=== PATIENT | female | born 1980 | race Two or more races ===

== ENCOUNTER 2018-04-17 07:23 | Emergency (ER) | payer OTHER ==
[~2018-04-17] VITALS: Ht 160 cm; Wt 68.0 kg
[~2018-04-17 07:23] MED LIST: NAPR-58 PO
[2018-04-17 07:24] VITALS: BP 109/63
== END 2018-04-17 07:48 | disposition left against medical advice (07) ==
LOC: EMS 07:23
DX: N93.9 Abnormal uterine and vaginal bleeding, unspecified (principal); Z53.21 Procedure and treatment not carried out due to patient leaving prior to being seen by health care provider

== ENCOUNTER 2018-11-03 09:05 | Observation (INO) | payer MEDICAID ==
[~2018-11-03 09:05] MED LIST changes: +NAPR-1025 PO; -NAPR-58 PO
[2018-11-03 11:22] VITALS: BP 107/56
== END 2018-11-03 10:30 | disposition home or self-care (01) ==
LOC: 4S 09:05
PROVIDERS: ADMIT Obstetrics & Gynecology; ATTEND Obstetrics & Gynecology
DX: O24.419 Gestational diabetes mellitus in pregnancy, unspecified control (principal); O09.523 Supervision of elderly multigravida, third trimester; Z3A.34 34 weeks gestation of pregnancy

== ENCOUNTER 2018-11-05 09:00 | Observation (INO) | payer MEDICAID ==
[~2018-11-05] VITALS: Ht 165.1 cm; Wt 77.6 kg
[2018-11-05 09:48] VITALS: BP 101/56
== END 2018-11-05 10:45 | disposition home or self-care (01) ==
LOC: 4S 09:00
PROVIDERS: ADMIT Obstetrics & Gynecology; ATTEND Obstetrics & Gynecology
DX: O24.419 Gestational diabetes mellitus in pregnancy, unspecified control (principal); O09.523 Supervision of elderly multigravida, third trimester; Z3A.35 35 weeks gestation of pregnancy
CPT/HCPCS: 81002; G0378

== ENCOUNTER 2018-11-09 09:25 | Observation (INO) | payer MEDICAID ==
[~2018-11-09] VITALS: Ht 165.1 cm; Wt 77.8 kg
[2018-11-09] MEDS ORDERED: PREN-154 PO (09:46)
[2018-11-09 10:06] VITALS: BP 109/58
== END 2018-11-09 10:15 | disposition home or self-care (01) ==
LOC: 4S 09:25
PROVIDERS: ADMIT Obstetrics & Gynecology; ATTEND Obstetrics & Gynecology
DX: O24.419 Gestational diabetes mellitus in pregnancy, unspecified control (principal); O09.523 Supervision of elderly multigravida, third trimester; Z3A.35 35 weeks gestation of pregnancy
CPT/HCPCS: 81002; G0378

== ENCOUNTER 2018-11-11 09:05 | Observation (INO) | payer MEDICAID ==
[~2018-11-11] VITALS: Ht 162.6 cm; Wt 77.8 kg
[~2018-11-11 09:05] MED LIST changes: -NAPR-1025 PO; +PREN-154 PO
[2018-11-11 09:59] VITALS: BP 101/50
[2018-11-11] MEDS ORDERED: INSREG SQ ×2 (10:15)
[2018-11-11] MEDS ORDERED: INSNPH SQ ×2 (10:15)
== END 2018-11-11 10:45 | disposition home or self-care (01) ==
LOC: 4S 09:05
PROVIDERS: ADMIT Obstetrics & Gynecology; ATTEND Obstetrics & Gynecology
DX: O24.419 Gestational diabetes mellitus in pregnancy, unspecified control (principal); O99.343 Other mental disorders complicating pregnancy, third trimester; F32.9 Major depressive disorder, single episode, unspecified; O09.523 Supervision of elderly multigravida, third trimester; Z3A.36 36 weeks gestation of pregnancy
CPT/HCPCS: 81002; G0378

== ENCOUNTER 2018-11-16 09:05 | Observation (INO) | payer MEDICAID ==
[~2018-11-16] VITALS: Ht 166 cm; Wt 78.0 kg
[~2018-11-16 09:05] MED LIST changes: +INSNPH SQ; +INSREG SQ
[2018-11-16 09:23] VITALS: BP 113/58
== END 2018-11-16 10:20 | disposition home or self-care (01) ==
LOC: 4S 09:05
PROVIDERS: ADMIT Obstetrics & Gynecology; ATTEND Obstetrics & Gynecology
DX: O24.419 Gestational diabetes mellitus in pregnancy, unspecified control (principal); O99.343 Other mental disorders complicating pregnancy, third trimester; F32.9 Major depressive disorder, single episode, unspecified; O09.523 Supervision of elderly multigravida, third trimester; Z3A.36 36 weeks gestation of pregnancy

== ENCOUNTER 2018-11-16 22:32 | Observation (INO) | payer MEDICAID ==
[~2018-11-16] VITALS: Ht 165.1 cm; Wt 78.0 kg
[2018-11-16] MEDS ORDERED: DOCUSATE SODIUM 100 MG CAPSULE PO ONE (22:45)
[2018-11-16] MEDS ORDERED: BISACODYL 10 MG RECTAL RECTAL SUPPOSITORY PR ONE ×2 (22:45→23:08)
== END 2018-11-17 00:20 | disposition home or self-care (01) ==
LOC: 4S 22:32
PROVIDERS: ADMIT Obstetrics & Gynecology; ATTEND Obstetrics & Gynecology
DX: O26.893 Other specified pregnancy related conditions, third trimester (principal); K59.00 Constipation, unspecified; O09.523 Supervision of elderly multigravida, third trimester; Z3A.36 36 weeks gestation of pregnancy

== ENCOUNTER 2018-11-19 09:15 | Observation (INO) | payer MEDICAID ==
[~2018-11-19] VITALS: Ht 165.1 cm; Wt 78.5 kg
[2018-11-19 09:55] VITALS: BP 107/53
[2018-11-19] MEDS ORDERED: LIDOCAINE 5% 36 GM OINTMENT TP SCH (10:30)
== END 2018-11-19 10:35 | disposition home or self-care (01) ==
LOC: 4S 09:15
PROVIDERS: ADMIT Obstetrics & Gynecology; ATTEND Obstetrics & Gynecology
DX: O24.419 Gestational diabetes mellitus in pregnancy, unspecified control (principal); O99.343 Other mental disorders complicating pregnancy, third trimester; F32.9 Major depressive disorder, single episode, unspecified; O09.523 Supervision of elderly multigravida, third trimester; Z3A.37 37 weeks gestation of pregnancy

== ENCOUNTER 2018-11-23 09:25 | Observation (INO) | payer MEDICAID ==
[~2018-11-23] VITALS: Ht 165.1 cm; Wt 78.6 kg
[2018-11-23 09:44] VITALS: BP 107/56
== END 2018-11-23 10:20 | disposition home or self-care (01) ==
LOC: 4S 09:25
PROVIDERS: ADMIT Obstetrics & Gynecology; ATTEND Obstetrics & Gynecology
DX: O24.419 Gestational diabetes mellitus in pregnancy, unspecified control (principal); O09.523 Supervision of elderly multigravida, third trimester; Z3A.37 37 weeks gestation of pregnancy
CPT/HCPCS: 81002; G0378

== ENCOUNTER 2018-11-26 09:32 | Observation (INO) | payer MEDICAID ==
[~2018-11-26] VITALS: Ht 195.6 cm; Wt 80.3 kg
[2018-11-26 08:14] VITALS: BP 113/74
[2018-11-26 10:03] VITALS: BP 99/53
[2018-11-26] MEDS ORDERED: CITRIC ACID/SODIUM CITRATE 30 ML SOLUTION UDCUP ONE (15:01)
[2018-11-26] MEDS ORDERED: MORPHINE SULFATE/PF 1 MG/ML 10 ML AMP ONE (15:52)
[2018-11-26] MEDS ORDERED: FentaNYL CITRATE-PF 100 MCG/2 ML VIAL ONE (15:52)
[2018-11-26] MEDS ORDERED: BUPIVACAINE HCL/DEX-WATER/PF 0.75% 2 ML AMP ONE (15:52)
[2018-11-26] MEDS ORDERED: MIDAZOLAM HCL 2 MG/2 ML VIAL ONE (15:52)
== END 2018-11-26 10:40 | disposition home or self-care (01) ==
LOC: 4S 09:32
PROVIDERS: ADMIT Obstetrics & Gynecology; ATTEND Obstetrics & Gynecology
DX: O24.419 Gestational diabetes mellitus in pregnancy, unspecified control (principal); O09.523 Supervision of elderly multigravida, third trimester; Z3A.38 38 weeks gestation of pregnancy
CPT/HCPCS: 81002; G0378; J2250; J2270; J3010; J3490

== ENCOUNTER 2018-11-30 09:45 | Observation (INO) | payer MEDICAID ==
[~2018-11-30] VITALS: Ht 165.1 cm; Wt 79.6 kg
[2018-11-30 12:53] VITALS: BP 84/51
== END 2018-11-30 12:00 | disposition home or self-care (01) ==
LOC: 4S 09:45
PROVIDERS: ADMIT Obstetrics & Gynecology; ATTEND Obstetrics & Gynecology
DX: O36.8330 Maternal care for abnormalities of the fetal heart rate or rhythm, third trimester, not applicable or unspecified (principal); O09.523 Supervision of elderly multigravida, third trimester; O24.419 Gestational diabetes mellitus in pregnancy, unspecified control; O22.43 Hemorrhoids in pregnancy, third trimester; F32.9 Major depressive disorder, single episode, unspecified; Z3A.38 38 weeks gestation of pregnancy; Z98.891 History of uterine scar from previous surgery

== ENCOUNTER 2019-04-02 21:19 | Emergency (ER) | payer MEDICAID ==
[~2019-04-02] VITALS: Ht 167.6 cm; Wt 70.5 kg
[2019-04-02 21:39] VITALS: BP 128/79
== END 2019-04-02 22:01 | disposition left against medical advice (07) ==
LOC: EMS 21:20
DX: R21 Rash and other nonspecific skin eruption (principal); Z53.21 Procedure and treatment not carried out due to patient leaving prior to being seen by health care provider

== ENCOUNTER 2020-11-05 16:45 | Emergency (ER) | payer MEDICAID, OTHER ==
[~2020-11-05] VITALS: Ht 172.7 cm; Wt 77.3 kg
[2020-11-05 23:32] VITALS: BP 119/74
== END 2020-11-05 23:32 | disposition home or self-care (01) ==
LOC: EMS 16:45
DX: M71.22 Synovial cyst of popliteal space [Baker], left knee (principal)
CPT/HCPCS: 93971; 99284; 73562-TC; Z7502